=== PATIENT | female | born 1990 | race Two or more races ===

== ENCOUNTER 2016-09-16 03:55 | Emergency (ER) | payer SELFPAY ==
[~2016-09-16] VITALS: Ht 157.5 cm; Wt 77.1 kg
[2016-09-16 04:29] LABS: Basophils # (auto) 0.1 uL; Basophils % (auto) 0.7 % (0.0-2.0); Eosinophils # (auto) 0.1 uL; Eosinophils % (auto) 1.3 % (0.0-7.0); Hematocrit 36.3 % (36.0-46.0); Lymphocytes # (auto) 2.1 uL; Lymphocytes % (auto) 30.6 % (10.0-50.0); Mean Corpuscular Hemoglobin 27.6 pg (28.0-32.0); Mean Corpuscular Volume 83.7 fL (80.0-100.0); Mean Platelet Volume 9.2 fL (7.4-10.4); Monocytes # (auto) 0.6 uL; Monocytes % (auto) 8.6 % (0.0-12.0); Neutrophils # (auto) 4.1 uL; Neutrophils % (auto) 58.8 % (37.0-80.0); Platelet Count (auto) 273 10^3/uL (140-450)
[2016-09-16 04:48] LABS: Urine Bilirubin Negative (Negative); Urine Color Yellow (Yellow); Urine Glucose Normal (Normal); Urine Ketone Negative (Negative); Urine Mucus FEW (None Seen); Urine Nitrite Negative (Negative); Urine RBC 41 /hpf (0 - 4); Urine Squamous Epithelial Cell FEW /hpf (<5); Urine Urobilinogen Normal (Negative); Urine pH 5.5 (5.0-8.0)
[2016-09-16 04:50] LABS: Albumin 3.4 g/dL (3.4-5.0); BUN/Creatinine Ratio 11.7; Calcium 8.6 mg/dL (8.5-10.1); Potassium 3.7 mmol/L (3.5-5.1)
[2016-09-16 04:52] LABS: Urine Blood 2+ /uL (Negative)
[2016-09-16 04:52] LABS: Bilirubin, Total 0.2 mg/dL (0.2-1.0); Total Protein 7.5 g/dL (6.4-8.2)
[2016-09-16 06:39] VITALS: BP 95/63
== END 2016-09-16 08:34 | disposition home or self-care (01) ==
LOC: ER 04:10
DX: N39.0 Urinary tract infection, site not specified (principal); N20.0 Calculus of kidney; Z90.49 Acquired absence of other specified parts of digestive tract
CPT/HCPCS: 36415; 74176; 80053; 81001; 81025; 85025